=== PATIENT | male | born 1975 ===

== ENCOUNTER 2019-02-07 07:07 | Day surgery (SDC) | payer OTHER ==
[~2019-02-07 07:07] MED LIST: Buffered Lidocaine 1% SYRIN* 1 ML/SYRINGE INTRADERM ONE; Lactated Ringers 1000 ML Bag* 1,000 ML IV SCH
[2019-02-07] MEDS ORDERED: ceFAZolin 2 GM in NS PREMIX(*) 2 GM/100 ML BAG IVPB ONE (07:33)
[2019-02-07] MEDS ORDERED: Midazolam* 1 MG/ML 2 ML VIAL (2 MG) ONE (08:29)
[2019-02-07] MEDS ORDERED: Propofol* 10 MG/ML 20 ML BTL ONE ×2 (08:29→09:01)
[2019-02-07] MEDS ORDERED: Lidocaine 2% PF * 5 ML VIAL ONE (08:29)
[2019-02-07] MEDS ORDERED: Acetaminophen TAB* 325 MG PO PRN (09:11)
[2019-02-07] MEDS ORDERED: Naloxone* 0.4 MG/ML 1 ML VIAL IV PRN (09:11)
[2019-02-07] MEDS ORDERED: oxyCODONE TAB* 5 MG TAB PO PRN (09:11)
[2019-02-07] MEDS ORDERED: Ondansetron INJ* 2 MG/ML VIAL IV PRN (09:11)
[2019-02-07] MEDS ORDERED: Ketorolac INJ* 30 MG/ML 1 ML VIAL IV PRN (09:11)
[2019-02-07] MEDS ORDERED: fentaNYL* 50 MCG/ML 2 ML VIAL (100 MCG VIAL) IV PRN (09:11)
[2019-02-07 09:57] VITALS: BP 101/66
--- NOTE | 2019-02-07 10:45 | OP ---
CC: Dr. Cueva OPERATIVE REPORT: DATE OF OPERATION: 02/07/19 DATE OF : 73 SURGEON: Nela Cueva MD MANAGER LEASING: KARL Rivero ANESTHESIA: Local MAC. PRE-OP DIAGNOSES: 1. Left carpal tunnel syndrome. 2. Ulnar nerve compression of the left elbow. POST-OP DIAGNOSES: 1. Left carpal tunnel syndrome. 2. Ulnar nerve compression of the left elbow. OPERATIVE PROCEDURE: 1. Left carpal tunnel release. 2. Left ulnar nerve decompression of the elbow. ESTIMATED BLOOD LOSS: Zero. TOURNIQUET TIME: Approximately 30 minutes. INDICATION FOR PROCEDURE: Cesar is a 43-year-old man with numbness and tingling in his left hand. On exam, he has ulnar compression of the elbow and median nerve compression of the wrist. He presents for decompression of both nerves. DESCRIPTION OF PROCEDURE: The patient was brought to the operating room, was given a sedation anesth etic and a local infiltration of 10 cc of 1% plain lidocaine in the palm of his left hand. He was gi sandy injection of total of 20 cc of 0.5% plain Marcaine on the medial aspect of his left elbow. His l eft upper extremity was prepped and draped in the usual sterile fashion. The upper extremity was exs anguinated and the tourniquet elevated to 250 mmHg. A longitudinal incision was made in the palm in line with the ring finger. We dissected through the subcutaneous tissue down to the transverse carpa l ligament. The ligament was divided sharply with a knife and then more proximally with the scissors . The nerve was dissected free from the surrounding tissue and there was an area of moderate aby rosibel at the mid portion of the ligament. The wound was irrigated and the skin edges reapproximated w ith 4-0 nylon suture. Next, a curvilinear incision was made centered between the medial epicondyle a nd the tip of the olecranon process. We dissected through the subcutaneous tissue down to the ulnar n erve proximal to the elbow. It was carefully dissected out proximally, then through the cubital tunn el and then into the FCU muscle. The superficial and deep portion of the FCU fascia was divided. Th e medial intermuscular septum was divided. The nerve was most compressed through the cubital tunnel. The wound was irrigated and the subcutaneous tissue was closed with 3-0 Polysorb. The skin edges w ere reapproximated with seble. The wounds were dressed with Xeroform, 4x4, Webril, and an Benny wrap . The patient tolerated the procedure well and was brought to the recovery room in good condition. [id number]/[facility] #: [id number]
[2019-02-07] MEDS ORDERED: Lidocaine 1% INJ* 10 MG/ML 30 ML SDV ONE (14:57)
== END 2019-02-07 10:20 | disposition home or self-care (01) ==
LOC: OREAST 07:07
PROVIDERS: ATTEND Orthopaedic Surgery
DX: G56.02 Carpal tunnel syndrome, left upper limb (principal); G56.22 Lesion of ulnar nerve, left upper limb; Z87.891 Personal history of nicotine dependence; K21.9 Gastro-esophageal reflux disease without esophagitis; F41.8 Other specified anxiety disorders; I25.2 Old myocardial infarction
CPT/HCPCS: J0690; J2250; J2704

== ENCOUNTER 2019-03-14 09:36 | Day surgery (SDC) | payer OTHER ==
--- NOTE | 2019-03-13 12:23 | HP ---
AMENDED REPORT NOW INCLUDES DESIGNATED COSIGNER PREOPERATIVE HISTORY AND PHYSICAL: DATE OF SURGERY/ADMISSION: 03/14/19 DATE OF OFFICE VISIT/ENCOUNTER: 03/13/19 ATTENDING SURGEON: Nela Cueva MD.* (DICTATED BY AKRL CROCKER) PROCEDURE: Right wrist carpal tunnel release. HISTORY OF PRESENT ILLNESS: This is a 43-year-old male who complains of numbness and tingling in his right hand ongoing for over 6 months. Along with the numbness and tinging, he is also feeling pain and some decreased strength in the right hand. He has trouble writing and is experiencing numbness when he drives. He gets symptoms at night that awaken him. He had a nerve conduction EMG performed which showed evidence of carpal tunnel syndrome on the right. He would like to proceed with surgical intervention for this problem. He recently underwent a left wrist carpal tunnel release and has done quite well with that. PAST MEDICAL HISTORY: 1. GERD. 2. Depression. 3. Anxiety. 4. 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 PAST SURGICAL HISTORY: 1. Left Carpal tunnel release. 2. Cubital tunnel release. CURRENT MEDICATIONS: 1. Truvada 200/300 mg 1 daily. 2. Venlafaxine HCl ER 150 mg daily. 3. Aspirin 81 mg daily. 4. Pantoprazole sodium 40 mg daily. ALLERGIES: EPINEPHRINE causes seizures. FAMILY MEDICAL HISTORY: Diabetes and cardiac issues. SOCIAL HISTORY: The patient is currently on short-term disability. He is an RN , home health care provider. He admits to occasional alcohol and marijuana use. He denies tobacco use. He denies other illicit drug use. REVIEW OF SYSTEMS: Negative for general, cephalic, cardiovascular, respiratory , GI, , other musculoskeletal, integumentary, endocrine, neurologic, or hematologic symptoms. Infectious Disease: Negative for MRSA, hepatitis C, HIV. PHYSICAL EXAMINATION GENERAL: Well-developed, well-nourished 43-year-old male, in no acute distress. VITAL SIGNS: Height 5 feet 10 inches, weight 214 pounds. Pulse rate 87, blood pressure 122/62. HEENT: Normocephalic, atraumatic. Pupils are equal, round, and reactive to light and accommodation. Extraocular movements are intact. Throat is clear. NECK: Supple. No palpable lymph nodes. PULMONARY: Lungs are clear to auscultation bilaterally. No wheezes, rales, or rhonchi. CARDIOVASCULAR: Regular rate and rhythm. S1, S2. No murmurs, rubs, or gallops. No edema. ABDOMEN: Positive bowel sounds. Soft, nontender. NEUROLOGICAL: Alert and oriented x3. Cranial nerves II through XII are intact. Sensation is intact to light touch. MUSCULOSKELETAL: On exam of his right wrist and hand, there is no visible thenar wasting but he does have weakness with thumb abduction. He has a positive median nerve compression test. Negative Tinel's at the wrist and at the elbow. Negative Phalen's test. Skin is intact. Sensation is intact to light touch throughout the hand. IMPRESSION: Right carpal tunnel syndrome. PLAN: The patient is scheduled to undergo a left wrist carpal tunnel release with Dr. Cueva on 03/14/19. He will return to the office 10 days postop for followup and suture removal. A prescription for Holcomb was e-scribed to the patient's pharmacy for postoperative pain management. KARL CROCKER [id number]/[facility] #: [id number] ELIZABETH
[~2019-03-14 09:36] MED LIST changes: +Dexamethasone IV* 4 MG/ML 1 ML (4 MG) IV SLOW PU ONE; +Famotidine IV* 10 MG/ML 2 ML (20 mg) IV ONE
[2019-03-14] MEDS ORDERED: Buffered Lidocaine 1% SYRIN* 1 ML/SYRINGE INTRADERM ONE (10:12)
[2019-03-14] MEDS ORDERED: Dexamethasone IV* 4 MG/ML 1 ML (4 MG) ONE (10:12)
[2019-03-14] MEDS ORDERED: Famotidine IV* 10 MG/ML 2 ML (20 mg) ONE (10:12)
[2019-03-14] MEDS ORDERED: Lidocaine 1% INJ* 10 MG/ML 30 ML SDV ONE (10:14)
[2019-03-14] MEDS ORDERED: Ondansetron INJ* 2 MG/ML VIAL ONE (10:28)
[2019-03-14] MEDS ORDERED: fentaNYL* 50 MCG/ML 2 ML VIAL (100 MCG VIAL) ONE (10:28)
[2019-03-14] MEDS ORDERED: Propofol* 10 MG/ML 20 ML BTL ONE (10:28)
[2019-03-14] MEDS ORDERED: Midazolam* 1 MG/ML 5 ML VIAL (5 MG) ONE (10:28)
[2019-03-14] MEDS ORDERED: Ketorolac INJ* 30 MG/ML 1 ML VIAL ONE (10:28)
[2019-03-14 11:39] VITALS: BP 116/63
--- NOTE | 2019-03-14 13:34 | OP ---
DATE OF OPERATION: 03/14/19 [facility] DATE OF : 73 SURGEON: Nela Cueva MD. NURSE MIDWIFE/CLINICAL INSTRUCTOR: KARL Rivero. ANESTHESIA: Local MAC. PRE-OP DIAGNOSIS: Right carpal tunnel syndrome. POST-OP DIAGNOSIS: Right carpal tunnel syndrome. OPERATIVE PROCEDURE: Right carpal tunnel release. ESTIMATED BLOOD LOSS: Zero. TOURNIQUET TIME: About 10 minutes. INDICATIONS: Cesar is a 43-year-old man who has bilateral carpal tunnel syndrome. He has done very well with a left carpal tunnel release, presents for the same on the right. DESCRIPTION OF PROCEDURE: The patient was brought to the operating room, was given a sedation anesthetic and a local infiltration with 10 cc of 1% plain lidocaine in the palm of his right hand. The skin of his right hand and forearm was prepped and draped in the usual sterile fashion. The hand and forearm were exsanguinated and the tourniquet elevated to 250 mmHg. A longitudinal incision was made in the palm in line with the ring finger. We dissected through the subcutaneous tissue down to the transverse carpal ligament. The ligament was divided sharply with a knife and then more proximally with the scissors. The nerve was dissected free from the surrounding tissue, and there was an area of moderate compression at the mid portion of the ligament. The wound was irrigated and the skin edges reapproximated with 4-0 nylon suture. The wound was dressed with Xeroform, 4x4 , Webril, and an Benny wrap. The patient tolerated the procedure well and was brought to the recovery room in good condition. [id number]/[facility] #: [id number] [facility]
== END 2019-03-14 12:04 | disposition home or self-care (01) ==
LOC: OREAST 09:36
PROVIDERS: ATTEND Orthopaedic Surgery
DX: G56.01 Carpal tunnel syndrome, right upper limb (principal); K21.9 Gastro-esophageal reflux disease without esophagitis; F32.9 Major depressive disorder, single episode, unspecified; F41.9 Anxiety disorder, unspecified; Z79.82 Long term (current) use of aspirin
CPT/HCPCS: J1100; J1885; J2250; J2405; J2704; J3010